=== PATIENT | female | born 1970 | race Caucasian/White ===

== ENCOUNTER 2018-02-19 11:51 | Emergency (ER) | payer SELFPAY ==
[~2018-02-19] VITALS: Ht 157.5 cm; Wt 97.1 kg
[~2018-02-19 11:51] MED LIST: [UNRECOGNIZED DRUG - OTHER]; [UNRECOGNIZED DRUG - OTHER]
[2018-02-19] MEDS ORDERED: KETOROLAC TROMETHAMINE 30 MG/ML VIAL IV STA (12:22)
--- NOTE | 2018-02-19 12:46 | Diagnostic Imaging Report ---
EXAMINATION: PA and lateral views of the chest. COMPARISON: None CLINICAL HISTORY: Chest pain, right-sided DISCUSSION: Lines/tubes: None. Lungs: The lungs are well inflated and clear. No pneumonia or pulmonary edema. Pleura: No pleural effusion or pneumothorax. Heart and mediastinum: The cardiomediastinal silhouette is normal. Bones and soft tissues: No acute bony abnormalities. IMPRESSION: No acute cardiopulmonary abnormalities. Signed by: Dr. Mihir Abel M.D. on 02/19/2018 12:43 PM
[2018-02-19] MEDS ORDERED: IBUPROFEN400 MG PO (13:27)
[2018-02-19] MEDS ORDERED: MACROBID 100 M100 MG PO (13:27)
== END 2018-02-19 13:34 | disposition home or self-care (01) ==
LOC: FSED 11:51
DX: R07.89 Other chest pain (principal); S29.011A Strain of muscle and tendon of front wall of thorax, initial encounter
CPT/HCPCS: 71046; 80053; 81003; 81025; 82553; 83880; 84484; 85025; 85379; 93005; 99284; J1885

== ENCOUNTER 2019-02-04 11:36 | Emergency (ER) | payer OTHER ==
[~2019-02-04] VITALS: Ht 152.4 cm; Wt 112.5 kg
[~2019-02-04 11:36] MED LIST changes: +IBUPROFEN400 MG PO; +MACROBID 100 M100 MG PO
--- OUTSIDE RECORDS SUMMARY | 2019-02-04 11:38 | XMS REPORT ---
Author Author [facility] Address Unknown Phone Unavailable Care Team Providers Care Supervisor Safety Deposit Name Role Phone Byron JACOBS Unavailable Unavailable Problems This patient has no known problems. Allergies, Adverse Reactions, Alerts This patient has no known allergies or adverse reactions. Medications This patient has no known medications. Results Test Description Test Time Test Comments Text Results Atomic Results Result Comments CXR 2 VIEW - [facility] 2018-02-19 12:42:00 [facility] [address] [place] [address] Patient Name: VIKRAM SUAREZ MR #: [id number] : 1970 Age/Sex: 47/F Req #: [id number] Adm Physician: Ordered by: BARBARA JACOBS MD Report #: [id number] Location: [facility] Room/Bed: Procedure: [id number] HOPD/CXR 2 [facility] Exam Date: Exam Time: REPORT STATUS: Signed EXAMINATION: PA and lateral views of the chest. COMPARISON: None CLINICAL HISTORY: Chest pain, right-sided DISCUSSION: Lines/tubes: None. Lungs: The lungs are well inflated and clear. No pneumonia or pulmonary edema. Pleura: No pleural effusion or pneumothorax. Heart and mediastinum: The cardiomediastinal silhouette is normal. Bones and soft tissues: No acute bony abnormalities. IMPRESSION: No acute cardiopulmonary abnormalities. Signed by: Dr. Jose Gonzalez M.D. on 02/19/2018 12:43 PM Dictated By: JOSE GONZALEZ MD [id number] Transcribed By: ROBERT on 02/19/18 1243 COPY TO: BARBARA JACOBS MD
[2019-02-04] MEDS ORDERED: PREDNISONE20 MG PO (12:01)
[2019-02-04] MEDS ORDERED: VALACYCLOVIR500 MG PO (12:01)
== END 2019-02-04 12:05 | disposition left against medical advice (07) ==
LOC: FSED 11:36
DX: G51.0 Bell's palsy (principal)

== ENCOUNTER 2019-02-04 13:41 | Emergency (ER) | payer OTHER ==
[~2019-02-04] VITALS: Ht 157.5 cm; Wt 112.5 kg
[~2019-02-04 13:41] MED LIST changes: +PREDNISONE20 MG PO; +VALACYCLOVIR500 MG PO
[2019-02-04] MEDS ORDERED: DEXAMETHASONE SOD PHOS 10 MG/1 ML VIAL IM ONE (14:30)
--- NOTE | 2019-02-04 14:41 | Diagnostic Imaging Report ---
History: Facial droop Comparison studies: None Technique: Axial images were obtained from the skull base to the vertex. Coronal and sagittal reconstructions obtained from the axial data. Dose modulation, iterative reconstruction, and/or weight based adjustment of the mA/kV was utilized to reduce the radiation dose to as low as reasonably achievable. Findings: Scalp/skull: No abnormalities. No fractures, blastic or lytic lesions. Extra-axial spaces: No masses. No fluid collections. Brain sulci: Appropriate for age. Ventricles: Normal in size and configuration. No hydrocephalus. Parenchyma: No abnormal densities. No masses, hemorrhage, acute or chronic cortical vascular insults. Sellar/suprasellar region: No abnormalities Craniocervical junction: Patent foramen magnum. No Chiari one malformation. IMPRESSION: No abnormalities . Signed by: DR Emeka Dow M.D. on 02/04/2019 2:47 PM
== END 2019-02-04 15:26 | disposition home or self-care (01) ==
LOC: ER 13:41
DX: G51.0 Bell's palsy (principal); E66.9 Obesity, unspecified
CPT/HCPCS: 70450; 99283; J1100

== ENCOUNTER 2024-01-05 16:46 | Emergency (ER) | payer OTHER ==
[~2024-01-05] VITALS: Ht 162.6 cm; Wt 127.0 kg
[2024-01-05 17:36] VITALS: TEMP 98.3
[2024-01-05] MEDS: TRAMADOL HCL 50 MG TAB PO ONE (18:34)
[2024-01-05] MEDS: SODIUM CHLORIDE 0.9% 1000ML 1,000 ML IV ONE (18:34)
[2024-01-05 19:08] VITALS: PULSE 102; RESP 18; O2SAT 97
[2024-01-05 20:16] VITALS: BP 177/93; PULSE 89; RESP 18; TEMP 98
[2024-01-05] MEDS ORDERED: CYCLOBENZAPRINE5 MG PO (20:16)
[2024-01-05] MEDS ORDERED: IBUPROFEN600 MG PO (20:17)
== END 2024-01-05 20:26 | disposition home or self-care (01) ==
LOC: FSED 17:04
DX: S20.212A Contusion of left front wall of thorax, initial encounter (principal); S20.02XA Contusion of left breast, initial encounter; M79.671 Pain in right foot; V43.62XA Car passenger injured in collision with other type car in traffic accident, initial encounter; Y92.488 Other paved roadways as the place of occurrence of the external cause; R94.31 Abnormal electrocardiogram [ECG] [EKG]
CPT/HCPCS: 71250; 73630; 93005; 99284; J7030